=== PATIENT | female | born 1980 | race Caucasian/White ===

== ENCOUNTER 2016-11-08 13:27 | Emergency (ER) | payer BC ==
[2016-11-08 13:45] VITALS: BP 116/53
[2016-11-08] MEDS ORDERED: predniSONE TAB* 20 MG PO ONE (14:04)
[2016-11-08] MEDS ORDERED: Albuterol HFA INHALER* 8 gm MDI INH ONE (14:05)
--- NOTE | 2016-11-08 14:14 | UC ---
Respiratory Complaint HPI - HPI Summary HPI Summary: 36 yo female ill x 4 days runny nose cough wheezing no f/c some sinus pressure - History of Current Complaint Chief Complaint: UCRespiratory Stated Complaint: COUGH SINUS ISSUE Time Seen by Provider: 11/08/16 13:58 Hx Obtained From: Patient Hx Last Menstrual Period: 11/04/16 Onset/Duration: Gradual Onset, Lasting Days Timing: Constant Severity Initially: Mild Severity Currently: Moderate Pain Intensity: 3 Pain Scale Used: 0-10 Numeric Character: Cough: Productive Aggravating Factors: Nothing Alleviating Factors: Nothing Associated Signs And Symptoms: Positive: Wheezing, URI, Nasal Congestion, Hoarseness Related History: Similar Episode/Dx as: - bronchitis - Allergies/Home Medications Allergies/Adverse Reactions: Allergies Allergy/AdvReac Type Severity Reaction Status Date / Time No Known Allergies Allergy Verified 11/08/16 13:45 Home Medications: Home Medications Pseudoephedrine HCl [Decongestant] 30 mg PO PRN 11/08/16 [History] PMH/Surg Hx/FS Hx/Imm Hx Previously Healthy: Yes Respiratory History: Bronchitis - Surgical History Surgical History: Yes Surgery Procedure, Year, and Place: Tubal ligation - Family History Known Family History: Positive: Hypertension Negative: Cardiac Disease, Diabetes - Social History Alcohol Use: Rare Substance Use Type: None Smoking Status (MU): Heavy Every Day Tobacco Smoker Type: Cigarettes Amount Used/How Often: 1/2 PPD Length of Time of Smoking/Using Tobacco: since age 15 Have You Smoked in the Last Year: Yes Cessation Counseling: Patient Advised to Stop - Immunization History Most Recent Influenza Vaccination: doesn't get Review of Systems Constitutional: Negative Skin: Negative Eyes: Negative ENT: Nasal Discharge, Sinus Congestion Respiratory: Cough Cardiovascular: Negative Gastrointestinal: Negative Genitourinary: Negative Motor: Negative Neurovascular: Negative Musculoskeletal: Negative Neurological: Negative Psychological: Negative All Other Systems Reviewed And Are Negative: Yes Physical Exam Triage Information Reviewed: Yes Appearance: Well-Appearing, No Pain Distress, Well-Nourished Vital Signs: Initial Vital Signs Temp 98.3 F 11/08/16 13:39 Pulse 77 11/08/16 13:39 Resp 16 11/08/16 13:39 BP 116/53 11/08/16 13:39 Pulse Ox 100 11/08/16 13:39 Vital Signs Reviewed: Yes Eyes: Positive: Conjunctiva Clear ENT: Positive: Hearing grossly normal, Pharynx normal, Nasal congestion, Nasal drainage, TMs normal. Negative: Tonsillar swelling, Tonsillar exudate, Trismus Neck: Positive: Supple, Nontender, No Lymphadenopathy Respiratory: Positive: No respiratory distress, No accessory muscle use, Wheezing Cardiovascular: Positive: RRR. Negative: Tachycardia, Bradycardia Musculoskeletal: Positive: ROM Intact, No Edema Neurological: Positive: Alert, Muscle Tone Normal Psychological Exam: Normal Skin Exam: Normal UC Diagnostic Evaluation - Laboratory O2 Sat by Pulse Oximetry: 100 - normal/not hypoxic Respiratory Course/Dx - Differential Dx/Diagnosis Provider Diagnoses: acute bronchitis with bronchospasm. tobacco abuse Discharge - Discharge Plan Condition: Stable Disposition: HOME Prescriptions: Amoxicillin PO (*) [Amoxicillin 875 MG (*)] 875 mg PO BID #14 tab Benzonatate CAP* [Tessalon CAP*] 100 - 200 mg PO TID PRN #28 cap PRN Reason: Cough Prednisone [Deltasone] 40 mg PO DAILY #10 tab Patient Education Materials: Acute Bronchitis (ED) Forms: *Work Release Referrals: Vik SHAFFER,Sam Weston [Primary Care Provider] - 5 Days (if not better) Additional Instructions: recheck for new or worsening symptoms
== END 2016-11-08 14:30 | disposition home or self-care (01) ==
LOC: UCEAST 13:27
DX: J20.9 Acute bronchitis, unspecified (principal); F17.210 Nicotine dependence, cigarettes, uncomplicated
CPT/HCPCS: 99212; A9270-GY; G0463; J7512